=== PATIENT | female | born 1955 | race Caucasian/White ===

== ENCOUNTER 2022-10-25 15:59 | Inpatient (IN) | payer MEDICARE, MEDICAID ==
[~2022-10-25] VITALS: Ht 157.5 cm; Wt 76.7 kg
[2022-10-25] MEDS ORDERED: ACETAMINOPHEN 325MG TABLET PO ONE (16:30)
[2022-10-25 16:56] LABS: BASOPHILS % 0.7 % (0.0-2.0); EOSINOPHILS % 3.2 % (0.0-5.0); HEMATOCRIT. 30.9 % (36.0-48.0); HEMOGLOBIN. 10.3 g/dL (12.0-16.0); MEAN CORPUSCULAR HEMOGLOBIN 30.2 pg (28.0-32.0); MEAN CORPUSCULAR VOLUME 90.7 fL (81.0-99.0); MONOCYTES % 7.6 % (2.0-8.0); NEUTROPHILS % 78.5 % (40.0-76.0); PLATELET 380 x1000/uL (130-400); RED BLOOD CELL COUNT 3.41 mill/uL (4.2-5.4); RED CELL DISTRIBUTION WIDTH 15.4 % (11.6-14.6)
[2022-10-25 17:03] LABS: CHLORIDE 100 mEq/L (98-107)
[2022-10-25] MEDS ORDERED: SODIUM CHLORIDE 0.9% 500 ML IV ONE (17:15)
[2022-10-25] MEDS ORDERED: METOPROLOL TARTRATE 25MG TABLET PO ONE (18:30)
[2022-10-26] MEDS ORDERED: ONDANSETRON HCL 4MG/2ML INJ IV PRN (11:30)
[2022-10-26] MEDS ORDERED: IPRATROPIUM/ALBUTEROL 0.5-3(2.5)MG/3ML NEB HHN PRN (11:30)
[2022-10-26] MEDS: METOPROLOL TARTRATE 25MG TABLET PO SCH ×2 (11:55→20:19)
[2022-10-26 12:15] VITALS: BP 135/84
[2022-10-26] MEDS ORDERED: IPRATROPIUM BROMIDE (0.02%) 0.5MG/2.5ML NEB HHN PRN (12:30)
[2022-10-26] MEDS ORDERED: ALBUTEROL (0.083%) 2.5MG/3ML NEB HHN PRN (12:30)
[2022-10-26] MEDS: ACETAMINOPHEN 325MG TABLET PO PRN ×2 (12:55→23:07)
[2022-10-26] MEDS ORDERED: ENOXAPARIN 60MG/0.6ML SYR SUBCUT NR (13:00)
[2022-10-26] MEDS ORDERED: POTASSIUM CHLORIDE 20MEQ/PACKET PO NR (13:30)
[2022-10-26 16:00] VITALS: BP 110/71
[2022-10-26] MEDS ORDERED: METOPROLOL SUCCINATE 50MG ER TABLET PO NR (17:15)
[2022-10-26 19:36] LABS: BASOPHILS % 1.2 % (0.0-2.0); EOSINOPHILS % 7.8 % (0.0-5.0); HEMATOCRIT. 29.8 % (36.0-48.0); HEMOGLOBIN. 9.8 g/dL (12.0-16.0); LYMPHOCYTES % 23.7 % (20.0-50.0); MEAN CORPUSCULAR HEMOGLOBIN 29.9 pg (28.0-32.0); MEAN CORPUSCULAR VOLUME 90.6 fL (81.0-99.0); MEAN PLATELET VOLUME 9.2 fl (7.4-10.4); MONOCYTES % 8.2 % (2.0-8.0); NEUTROPHILS % 59.1 % (40.0-76.0); PLATELET 335 x1000/uL (130-400); RED BLOOD CELL COUNT 3.29 mill/uL (4.2-5.4); RED CELL DISTRIBUTION WIDTH 15.6 % (11.6-14.6)
[2022-10-26 19:52] LABS: INR 1.3; PROTHROMBIN TIME 13.5 sec (9.6-11.0)
[2022-10-26 19:55] LABS: CHLORIDE 104 mEq/L (98-107)
[2022-10-26 20:00] VITALS: BP 101/60
[2022-10-26] MEDS ORDERED: METOPROLOL TARTRATE 5MG/5ML VIAL IV PRN (20:00)
[2022-10-26 20:08] LABS: CREATINE KINASE 29 IU/L (26-192); CREATINE KINASE MB FRACTION < 1.0 ng/mL (0.5-3.6)
[2022-10-26 20:21] LABS: HEPATITIS B SURFACE ANTIGEN NEGATIVE
[2022-10-27] VITALS: BP 116/79
[2022-10-27 01:17] LABS: CREATINE KINASE 30 IU/L (26-192); CREATINE KINASE MB FRACTION < 1.0 ng/mL (0.5-3.6)
[2022-10-27 04:00] VITALS: BP 103/56
[2022-10-27 08:00] VITALS: BP 123/81
[2022-10-27] MEDS ORDERED: POTASSIUM CHLORIDE 20MEQ TABLET SR PO NR (08:30)
[2022-10-27] MEDS: METOPROLOL TARTRATE 25MG TABLET PO SCH ×2 (08:46→20:36)
[2022-10-27] MEDS ORDERED: POTASSIUM CHLORIDE 20MEQ/PACKET PO NR (10:00)
[2022-10-27 12:00] VITALS: BP 140/73
[2022-10-27] MEDS: ENOXAPARIN 80MG/0.8ML SYR SUBCUT SCH (14:45)
[2022-10-27] MEDS ORDERED: MAGNESIUM 2 G PREMIX 50 ML IV NR (15:00)
[2022-10-27 16:00] VITALS: BP 116/74
[2022-10-27] MEDS: ACETAMINOPHEN 325MG TABLET PO PRN (16:35)
[2022-10-27 17:16] LABS: CLARITY URINE CLEAR (CLEAR); COLOR URINE DARK YELLOW (YELLOW); KETONES URINE TRACE (NEGATIVE); LEUKOCYTE ESTERASE URINE 2+ (NEGATIVE); NITRITE URINE NEGATIVE (NEGATIVE); OCCULT BLOOD URINE NEGATIVE (NEGATIVE); PROTEIN URINE 1+ (NEGATIVE)
[2022-10-27 18:04] LABS: *AMPHETAMINES SCREEN URINE NEGATIVE (NEGATIVE); *BARBITURATES SCREEN URINE NEGATIVE (NEGATIVE); *BENZODIAZEPINES SCREEN URINE NEGATIVE (NEGATIVE); *COCAINE SCREEN URINE NEGATIVE (NEGATIVE); CANNABINOID URINE SCREEN NEGATIVE (NEGATIVE); METHADONE URINE SCREEN NEGATIVE (NEGATIVE); OPIATES URINE SCREEN NEGATIVE (NEGATIVE); PHENCYCLIDINE URINE SCREEN NEGATIVE (NEGATIVE)
[2022-10-27 20:00] VITALS: BP 122/63
[2022-10-28 00:01] VITALS: BP 105/67
[2022-10-28 04:01] VITALS: BP 111/70
[2022-10-28 06:49] LABS: BASOPHILS % 2.1 % (0.0-2.0); EOSINOPHILS % 10.3 % (0.0-5.0); HEMATOCRIT. 27.2 % (36.0-48.0); HEMOGLOBIN. 9.1 g/dL (12.0-16.0); LYMPHOCYTES % 37.2 % (20.0-50.0); MEAN CORPUSCULAR HEMOGLOBIN 30.4 pg (28.0-32.0); MEAN CORPUSCULAR VOLUME 90.8 fL (81.0-99.0); MEAN PLATELET VOLUME 9.3 fl (7.4-10.4); MONOCYTES % 9.8 % (2.0-8.0); NEUTROPHILS % 40.6 % (40.0-76.0); PLATELET 338 x1000/uL (130-400); RED CELL DISTRIBUTION WIDTH 15.7 % (11.6-14.6)
[2022-10-28 08:00] VITALS: BP 124/80
[2022-10-28] MEDS: METOPROLOL TARTRATE 25MG TABLET PO SCH (08:41)
[2022-10-28] MEDS: ACETAMINOPHEN 325MG TABLET PO PRN (08:41)
[2022-10-28] MEDS ORDERED: PREDNISONE 20MG TABLET PO NR (12:00)
[2022-10-28] MEDS ORDERED: APIX5TAB MT (12:27)
[2022-10-28] MEDS ORDERED: COLC0.6C3 MT (12:27)
[2022-10-28] MEDS ORDERED: PRED10TA MT (12:27)
[2022-10-28] MEDS ORDERED: METO25TA6 PO (12:27)
[2022-10-28] MEDS ORDERED: COLCHICINE 0.6MG TABLET PO NR ×2 (12:30→14:00)
[2022-10-28 13:23] VITALS: BP 112/75
[2022-10-28] MEDS ORDERED: MAGNESIUM 2 G PREMIX 50 ML IV NR (14:00)
[2022-10-28] MEDS: ENOXAPARIN 80MG/0.8ML SYR SUBCUT SCH (14:00)
== END 2022-10-28 15:30 | disposition home or self-care (01) | DRG 554 ==
LOC: ER 15:59 → MICUSO 18:32 → EDBEDREQ 18:34 → 7WST 10-26 12:21
PROVIDERS: ADMIT Internal Medicine; ATTEND Internal Medicine
DX: M10.9 Gout, unspecified (principal); I48.20 Chronic atrial fibrillation, unspecified; I50.30 Unspecified diastolic (congestive) heart failure; I11.0 Hypertensive heart disease with heart failure; E87.6 Hypokalemia; D72.829 Elevated white blood cell count, unspecified; D64.9 Anemia, unspecified; E83.42 Hypomagnesemia; Z95.810 Presence of automatic (implantable) cardiac defibrillator; Z79.01 Long term (current) use of anticoagulants
CPT/HCPCS: 36415; 71045; 73080; 80048; 80053; 80305; 81003; 82550; 82553; 82962; 83735; 83880; 84484; 84550; 85025; 85651; 86803; 87340; 93005; 99285; A6261; J1650; J3475; J7040; J7512